=== PATIENT | male | born 1995 | race Caucasian/White ===

== ENCOUNTER 2018-10-13 17:33 | Inpatient (IN) | payer BC, OTHER ==
[~2018-10-13 17:33] MED LIST: ISOVUE-370 76%-LOCM 1 ML ONE
[2018-10-13 18:09] LABS: Hemoglobin 13.7 g/dL (14.0-18.0); Mean Corpuscular HGB CONC 33.7 g/dL (32.0-36.0); Mean Corpuscular Hemoglobin 30.3 pg (27.0-31.0); Mean Corpuscular Volume 89.7 fL (78.0-98.0); Mean Platelet Volume 8.1 fL (7.4-10.4); Platelet Count 262 thou/uL (130-400); RBC Distribution Width 11.5 % (11.5-14.5); Red Blood Cell (RBC) Count 4.54 mill/uL (4.70-6.10); White Blood Cell (WBC) Count 10.8 thou/uL (4.8-10.8)
--- NOTE | 2018-10-13 18:10 | RAD ---
CHEST ONE VIEW: 10/13/18 INDICATION: History of infected tooth. COMPARISON: None. FINDINGS: Lungs are clear. Heart size is normal. No acute osseous abnormality is evident. IMPRESSION: No acute cardiopulmonary abnormality. POS: BH
[2018-10-13] MEDS ORDERED: Acetaminophen 500 MG TAB ONE (18:27)
[2018-10-13 18:28] LABS: ALT (SGPT) 52 U/L (8-55); AST (SGOT) 80 U/L (5-34); Albumin 3.3 g/dL (3.5-5.0); Alkaline Phosphatase 387 U/L (40-150); Anion Gap 18 mmol/L (10-20); BUN (Urea Nitrogen) 16 mg/dL (8.9-20.6); Bilirubin, Total 0.8 mg/dL (0.2-1.2); Calc. Creatinine Clearance 0 mL/min (70-130); Calcium 9.1 mg/dL (7.8-10.44); Carbon Dioxide 24 mmol/L (22-29); Chloride 100 mmol/L (98-107); Estimated GFR-MDRD Greater than 90; Globulin 3.2 g/dL (2.4-3.5); Glucose 103 mg/dL (70-105); Protein, Total 6.5 g/dL (6.0-8.3); Sodium 139 mmol/L (136-145)
[2018-10-13 18:29] LABS: Band 55 % (5-11); Lymphocytes 1 % (21-51); MDiff Complete? YES; Neutrophil 43 % (42-75); Platelet Morphology Comment Appears Adequate; Polychromasia SLIGHT = 2-3 cells (100X) (0-2/hpf); Reactive Lymphocytes 1 % (0-10); Reflex for Review?? YES
[2018-10-13 18:30] LABS: Potassium 2.5 mmol/L (3.5-5.1)
[2018-10-13] MEDS ORDERED: Vancomycin HCl 1 GM in Premix Bag 1 BAG IVPB ONE (18:45)
--- NOTE | 2018-10-13 19:42 | CT ---
CT neck with IV contrast HISTORY: Infected tooth. Recent surgery. FINDINGS: Extensive pockets of gas are present within and surrounding the right temporalis muscle whi ch is expanded and contains some internal fluid. Masseter muscle is also expanded with fluid and small pockets of gas. Inflammation extends to the right pterygoid muscles. There is mass effect and e sushil of the right parapharyngeal space with leftward shift of the posterior nasopharyngeal airway. The right supratemporal gas and fluid collection measures up to 6.3 cm length by 7.3 cm depth by 1.1 cm width. Radiopaque packing material and rib and lie immediately lateral to the right mandibular body from rec ent surgery. Enlarged, reactive appearing lymph nodes along the right jugular chain. IMPRESSION: Postoperative changes with extensive gas pockets, fluid expansion, and subcutaneous edema involving the right muscles of mastication and into the supratemporal space. Likely abscess component. Effacement of the right parapharyngeal space and posterior nasopharyngeal airway. Radiopaque packing material is also in place.
[2018-10-13] MEDS ORDERED: Potassium Chloride 20 MEQ TAB ONE (20:15)
--- NOTE | 2018-10-13 20:44 | PDOC.FPRHP ---
- History of Present Illness Chief Complaint: Tooth Abscess History of Present Illness: 23 yo male with no PMH presents to ED with his parents for evaluation of tooth abscess. Patient was seen on Thursday in Urgent Care for right sided facial swelling and pain. He was started on Amoxicillin at that time and set up an appointment with OMFS. Today, he was seen by OMFS and was found to be tachycardic, hypotensive, and febrile. His abscess was lanced and packed and he was transferred to ED. Patient has since received pain medication, IVF, and antibiotics and states he feels improved. ED Course: 4L NS KCl Vancomycin Zosyn Tylenol - Allergies/Adverse Reactions Allergies Allergy/AdvReac Type Severity Reaction Status Date / Time No Known Allergies Allergy Unverified 10/13/18 18:34 - History PMHx: None PSHx: Ear tube placement FHx: Non-contributory Social: Denies alcohol, tobacco, illicit drug use. - Review of Systems General: reports: fever/chills, weight/appetite/sleep changes Eyes: denies: eye pain ENT: denies: nasal congestion, rhinorrhea Respiratory: denies: cough, congestion, shortness of breath Cardiovascular: denies: chest pain, palpitation, edema Gastrointestinal: denies: nausea, vomiting, diarrhea, constipation Genitourinary: denies: incontinence, dysuria Skin: reports: rashes. denies: lesions, jaundice Musculoskeletal: reports: pain, swelling. denies: tenderness, stiffness, arthritis/arthralgias Neurological: denies: numbness, syncope Psychological: denies: anxiety, depression - Vital signs BP: 100/63 HR: 136 RR: 24 Tmax: 103.1 Pox: 94% on RoomAir Wt: 82 kg - Physical Exam Constitutional: NAD, awake, alert and oriented HEENT: PERRLA, EOMI, grossly normal vision -HEENT: Right sided facial swelling and erythema. Trismus present Purulent drainage with surgical packing in place to right buccal mucosa Neck: trachea midline Heart: normal S1/S2, no murmurs/rubs/gallops -Heart: Tachycardic rate, regular rhythm Lungs: CTAB, no respiratory distress, good air movement, no rales/rhonchi, no wheezing, no retractions Abdomen: soft, non-tender, bowel sounds present, no masses/distention, no hernias Musculoskeletal: normal structure, normal tone, ROM grossly normal Neurological: no focal deficit, CN II-XII intact, normal sensation Skin: no rash/lesions, good turgor, capillary refill <2 seconds Heme/Lymphatic: no unusual bruising or bleeding, no purpura Psychiatric: normal mood and affect, good judgment and insight, intact recent and remote memory FMR H&P: Results - Labs Result Diagrams: 10/13/18 17:59 10/13/18 17:59 Lab results: WBC 10.8 thou/uL (4.8-10.8) 10/13/18 17:59 Hgb 13.7 g/dL (14.0-18.0) L 10/13/18 17:59 Hct 40.7 % (42.0-52.0) L 10/13/18 17:59 MCV 89.7 fL (78.0-98.0) 10/13/18 17:59 Plt Count 262 thou/uL (130-400) 10/13/18 17:59 Band Neuts % (Manual) 55 % (5-11) H 10/13/18 17:59 Sodium 139 mmol/L (136-145) 10/13/18 17:59 Potassium 2.5 mmol/L (3.5-5.1) L* 10/13/18 17:59 Chloride 100 mmol/L (98-107) 10/13/18 17:59 Carbon Dioxide 24 mmol/L (22-29) 10/13/18 17:59 BUN 16 mg/dL (8.9-20.6) 10/13/18 17:59 Creatinine 0.77 mg/dL (0.7-1.3) 10/13/18 17:59 Glucose 103 mg/dL (70-105) 10/13/18 17:59 Lactic Acid 2.2 mmol/L (0.5-2.2) 10/13/18 17:59 Calcium 9.1 mg/dL (7.8-10.44) 10/13/18 17:59 Total Bilirubin 0.8 mg/dL (0.2-1.2) 10/13/18 17:59 AST 80 U/L (5-34) H 10/13/18 17:59 ALT 52 U/L (8-55) 10/13/18 17:59 Alkaline Phosphatase 387 U/L (40-150) H 10/13/18 17:59 Serum Total Protein 6.5 g/dL (6.0-8.3) 10/13/18 17:59 Albumin 3.3 g/dL (3.5-5.0) L 10/13/18 17:59 FMR H&P: A/P - Problem List (1) Dental abscess Current Visit: Yes Status: Acute Code(s): K04.7 - PERIAPICAL ABSCESS WITHOUT SINUS (2) Sepsis Current Visit: Yes Status: Acute Code(s): A41.9 - SEPSIS, UNSPECIFIED ORGANISM (3) Hypokalemia Current Visit: Yes Status: Acute Code(s): E87.6 - HYPOKALEMIA (4) Elevated AST (SGOT) Current Visit: Yes Status: Acute Code(s): R74.0 - NONSPEC ELEV OF LEVELS OF TRANSAMNS & LACTIC ACID DEHYDRGNSE - Plan 1. Sepsis secondary to dental abscess - OMFS consulted and awaiting recommendations - Will continue antibiotics - Blood cultures pending - Wound cultures to be taken during procedure - s/p 4L NS 2. Hypokalemia - s/p 60 mEq oral - Continue to replete and recheck BMP 3. Elevated AST - No subjective Alcohol use - Possibly due to number one PCP: NONE CODE STATUS: FULL CODE Disposition: Stable, will admit to IMCU for further management. This patient was seen and evaluated with Dr. Jose Zeng who is in agreement with plan. Addendum - Attending - Attending Attestation Date/Time: 10/13/18 2100 I personally evaluated the patient and discussed the management with Dr. Milner. I agree with the History, Examination, Assessment and Plan documented above with any addition or exceptions noted below. Patient here with R maxillary wisdom tooth abscess s/p drainage at outside OMFS office earlier today. He reports pain and worsening swelling over the last 6 days. Also reports fevers and chills. Reports poor PO intake. On exam, he is tachycardic, borderline hypotensive, febrile. His exam is pertinent for significant swelling in the R face, extending into the posterior and lateral neck, and superiorly into the temporalis region. Significant edema and tenderness noted. He is unable to open his mouth fully. Reports that the pain is currently improved. Labs show significant leukocytosis with left shift and bandemia. He is also hypokalemic. CT of the head and neck shows tissue edema and gas formation in the L maxillary area with deeper extension. Patient will be admitted to IMCU for Severe sepsis 2/2 maxillary tooth abscess and overlying cellulitis extending into neck/head and deeper tissues. OMFS has been consulted and plans for further OR mgmt and debridement. He will be placed on broad spectrum abx. Pain control as needed. K has been repleted and will need recheck. He has been aggressively fluid resuscitated and will need continued IVF hydration while NPO. Fortunately, no evidence of end organ damage and he is asymptomatic from his mild hypotension. Will need close monitoring overnight.
[2018-10-13 22:15] LABS: Lactic Acid 1.1 mmol/L (0.5-2.2)
[2018-10-13] MEDS ORDERED: Morphine 2 MG/ML SYRINGE SLOW IVP PRN (22:33)
[2018-10-13] MEDS ORDERED: Ondansetron PF 4 MG/2 ML Vial IVP PRN (22:33)
[2018-10-13] MEDS: Lactated Ringer's 1,000 ML IV SCH (23:23)
[2018-10-13 23:58] LABS: Anion Gap 13 mmol/L (10-20); BUN (Urea Nitrogen) 10 mg/dL (8.9-20.6); Calc. Creatinine Clearance 0 mL/min (70-130); Calcium 7.8 mg/dL (7.8-10.44); Carbon Dioxide 22 mmol/L (22-29); Chloride 107 mmol/L (98-107); Estimated GFR-MDRD Greater than 90; Glucose 133 mg/dL (70-105); Potassium 3.2 mmol/L (3.5-5.1); Sodium 139 mmol/L (136-145)
[2018-10-14 00:45] VITALS: BMI 26.6
[2018-10-14] MEDS: Potassium Chloride 20 MEQ in Premix Bag 1 BAG IVPB SCH ×3 (01:00→03:00)
[2018-10-14] MEDS: Piperacillin/Tazobactam 3.375 GM in Sodium Chloride 0.9% 100 ML IVPB SCH ×5 (01:48→23:28)
[2018-10-14] MEDS: Vancomycin HCl 1 GM in Premix Bag 1 BAG IVPB SCH ×2 (06:01→17:19)
[2018-10-14] MEDS: Lactated Ringer's 1,000 ML IV SCH ×3 (06:02→23:31)
--- NOTE | 2018-10-14 06:24 | PDOC.FM ---
- Subjective Subjective: Patient denies any N/V overnight but did have subjective fever/chills. States his pain is well-controlled. Also able to stand without feeling lightheaded. - Objective MAR Reviewed: Yes Vital Signs & Weight: Vital Signs (12 hours) Temp 10/14/18 03:53 98.1 F Weight Weight 84.64 kg Most Recent Monitor Data Heart Rate from ECG 110 NIBP 97/54 NIBP BP-Mean 68 Respiration from ECG 20 SpO2 94 Result Diagrams: 10/14/18 06:59 10/13/18 23:32 Phys Exam - Physical Examination Constitutional: NAD HEENT: moist MMs, sclera anicteric trismus 2/2 pain &/or edema in R jaw with TTP & edema over R neck Neck: supple decreased ROM 2/2 pain in R neck Respiratory: no wheezing, no rales, no rhonchi, clear to auscultation bilateral Cardiovascular: no significant murmur tachycardic with regular rhythm Musculoskeletal: no edema Neurological: non-focal, moves all 4 limbs Psychiatric: normal affect, A&O x 3 Skin: no rash, normal turgor, cap refill <2 seconds Dx/Plan (1) Dental abscess Code(s): K04.7 - PERIAPICAL ABSCESS WITHOUT SINUS Status: Acute (2) Elevated AST (SGOT) Code(s): R74.0 - NONSPEC ELEV OF LEVELS OF TRANSAMNS & LACTIC ACID DEHYDRGNSE Status: Acute (3) Hypokalemia Code(s): E87.6 - HYPOKALEMIA Status: Acute (4) Sepsis Code(s): A41.9 - SEPSIS, UNSPECIFIED ORGANISM Status: Acute - Plan Plan: Sepsis secondary to dental abscess - Patient is s/p I&D as an outpatient with OMFS. However, OMFS consulted and to see again today. - Will continue IV antibiotics pending further recs from OMFS & culture results. - Blood cultures pending. - Will continue IVFs & IV morphine PRN for pain control. Hypokalemia - up to 3.2 this AM from 2.5 on admission. - NPO pending OMFS evaluation today so will attempt again to replace IV and continue to monitor & replete PRN. Elevated AST - No subjective Alcohol use - Possibly due to number one - Will continue to monitor PCP: NONE IVFs: LR @ 125mL/hr Abx: Vancomycin & Zosyn (day #2) Diet: NPO GI PPX: none DVT PPx: SCDs CODE STATUS: FULL CODE Disposition: Stable, will continue to monitor closely in IMCU pending recs from OMFS for further management. Addendum - Attending - Attending Attestation Date/Time: 10/14/18 4012 I personally evaluated the patient and discussed the management with Dr. Briseno. I agree with the History, Examination, Assessment and Plan documented above with any addition or exceptions noted below. Patient reports feeling well. He continues on broad spectrum IV abx and IVF. His vitals are improved this morning. Awaiting further OMFS recs and therapy to help with his sepsis 2/2 tooth abscess and surrounding infection. Will need continued K repletion. Continue NPO status.
[2018-10-14 07:42] LABS: Hemoglobin 10.8 g/dL (14.0-18.0); Mean Corpuscular Hemoglobin 30.5 pg (27.0-31.0); Mean Corpuscular Volume 89.8 fL (78.0-98.0); Mean Platelet Volume 8.2 fL (7.4-10.4); Platelet Count 241 thou/uL (130-400); RBC Distribution Width 11.7 % (11.5-14.5); Red Blood Cell (RBC) Count 3.53 mill/uL (4.70-6.10); White Blood Cell (WBC) Count 29.4 thou/uL (4.8-10.8)
[2018-10-14 07:59] LABS: Anion Gap 14 mmol/L (10-20); BUN (Urea Nitrogen) 9 mg/dL (8.9-20.6); Calc. Creatinine Clearance 229 mL/min (70-130); Calcium 7.9 mg/dL (7.8-10.44); Carbon Dioxide 25 mmol/L (22-29); Chloride 106 mmol/L (98-107); Estimated GFR-MDRD Greater than 90; Glucose 131 mg/dL (70-105); Potassium 3.4 mmol/L (3.5-5.1); Sodium 142 mmol/L (136-145)
[2018-10-14] MEDS ORDERED: Potassium Chloride 20 MEQ TAB PO SCH (08:00)
[2018-10-14 08:12] LABS: Band 51 % (5-11); Lymphocytes 2 % (21-51); MDiff Complete? YES; Monocytes 3 % (0-10); Neutrophil 43 % (42-75); Platelet Morphology Comment Appears Adequate; Polychromasia SLIGHT = 2-3 cells (100X) (0-2/hpf); Reactive Lymphocytes 1 % (0-10)
[2018-10-14] MEDS: Potassium Chloride 10 MEQ in Premix Bag 1 BAG IVPB SCH ×2 (09:11→09:12)
[2018-10-14] MEDS ORDERED: Acetaminophen 500 MG TAB PO PRN (11:39)
[2018-10-14] MEDS ORDERED: Morphine 2 MG/ML SYRINGE SLOW IVP PRN (11:40)
--- NOTE | 2018-10-15 03:49 | CON ---
DATE OF CONSULTATION: HISTORY OF PRESENT ILLNESS: Mr. Hernandez is a pleasant 23-year-old male, who presented to the maxillofacial guys after six days of severe jaw pain. He was found to have a dental abscess and impacted wisdom tooth. This was incised and drained. Because of the hypotension and tachycardia, he was sent to the emergency room and admitted. CT scanning of his neck done yesterday in the evening shows gas pockets, fluid expansion, subcu edema with mastication muscles and into the supratemporal space, felt to be infectious. He had right parapharyngeal and posterior nasopharyngeal edema. He says he feels 100% better than he felt yesterday. He has been healthy otherwise. He has had problems with the wisdom tooth in the past. FAMILY HISTORY: Negative for lung disease in early age. SOCIAL HISTORY: He is a nonsmoker and nondrinker. ALLERGIES: HE HAS NO DRUG ALLERGIES. REVIEW OF SYSTEMS: Ten-point is otherwise negative. PHYSICAL EXAMINATION: VITAL SIGNS: He is afebrile, heart rate is 112, oximetry is 95%, and blood pressure 129/75. HEAD AND NECK: Unremarkable other than being swollen. His voice is fine. LUNGS: Clear. HEART: Regular rhythm. S1 and S2 normal. ABDOMEN: Soft and nontender. EXTREMITIES: Without clubbing, cyanosis, or edema. LABORATORY DATA: Blood cultures are negative. Preliminary cultures from his abscess are negative, but they do show multiple organisms on Gram stain. IMPRESSION: Polymicrobial abscess. PLAN: Continue antimicrobial therapy. In my opinion, given that he is 23 years of age and unlikely to have a cardiac rhythm disturbance, it would be reasonable to transfer him out of the intermediate care unit given his hemodynamic instability. CRITICAL CARE TIME: 30 minutes. Job ID: [id number]
[2018-10-15] MEDS: Piperacillin/Tazobactam 3.375 GM in Sodium Chloride 0.9% 100 ML IVPB SCH ×4 (05:25→23:55)
[2018-10-15] MEDS: Vancomycin HCl 1 GM in Premix Bag 1 BAG IVPB SCH ×3 (05:26→22:19)
--- NOTE | 2018-10-15 06:24 | PDOC.FM ---
- Subjective Subjective: Patient was taken back for a 2nd I&D yesterday during which ~30-40cc of purulent material was removed and cultured. Patient has remained stable overnight and denies any fever/chills, N/V or orthostasis. Reports that his pain is well-controlled. - Objective MAR Reviewed: Yes Vital Signs & Weight: Vital Signs (12 hours) Temp Pulse Ox 10/15/18 03:37 99.4 F 10/15/18 00:08 99.5 F 10/14/18 19:51 97.9 F 10/14/18 19:35 95 Weight Weight 84.64 kg Most Recent Monitor Data Heart Rate from ECG 84 NIBP 133/68 NIBP BP-Mean 89 Respiration from ECG 19 SpO2 94 I&O: 10/13/18 10/14/18 10/15/18 06:59 06:59 06:59 Intake Total 2545 Output Total 1500 Balance 1045 Result Diagrams: 10/15/18 05:10 10/15/18 05:10 Phys Exam - Physical Examination Constitutional: NAD HEENT: moist MMs, sclera anicteric improvement in edema in R neck w/ persistent TTP Respiratory: no wheezing, no rales, no rhonchi, clear to auscultation bilateral Cardiovascular: RRR, no significant murmur Neurological: non-focal, moves all 4 limbs Psychiatric: normal affect, A&O x 3 Skin: no rash, normal turgor, cap refill <2 seconds Dx/Plan (1) Dental abscess Code(s): K04.7 - PERIAPICAL ABSCESS WITHOUT SINUS Status: Acute (2) Elevated AST (SGOT) Code(s): R74.0 - NONSPEC ELEV OF LEVELS OF TRANSAMNS & LACTIC ACID DEHYDRGNSE Status: Acute (3) Hypokalemia Code(s): E87.6 - HYPOKALEMIA Status: Acute (4) Sepsis Code(s): A41.9 - SEPSIS, UNSPECIFIED ORGANISM Status: Acute - Plan Plan: Sepsis secondary to dental abscess, improving - Patient is s/p I&D as an outpatient & inpatient with OMFS. OMFS on board & to possibly taking patient back to OR again this afternoon or evening. - Procal & WBC downtrending this AM and vitals WNLs. - Will continue IV antibiotics pending further recs from OMFS & culture results. Pharmacy to dose vanc as trough this AM was at a sub-therapeutic level at 6.6. - Blood & wound cultures pending. - Will continue IVFs & IV morphine PRN for pain control. Hypokalemia, resolved - K 3.5 this AM. Will continue to monitor & replete PRN. Elevated AST, improving - No subjective Alcohol use - Possibly due to number one - Will continue to monitor PCP: NONE IVFs: LR @ 125mL/hr Abx: Vancomycin & Zosyn (day #3) Diet: NPO after breakfast GI PPX: none DVT PPx: SCDs CODE STATUS: FULL CODE Disposition: Will move to surgical floor today and continue IV abx pending culture results. Addendum - Attending - Attending Attestation Date/Time: 10/15/18 6563 I personally evaluated the patient and discussed the management with Dr. Briseno. I agree with the History, Examination, Assessment and Plan documented above with any addition or exceptions noted below. Patient here for complicated tooth abscess, cellulitis, and sepsis. He is overall improved. WBC high, but afebrile and PCT downtrending. He continues on broad spectrum abx, cultures pending. He underwent significant drainage by OMFS yesterday. They plan to do this again today. WIll continue current mgmt and pain control and await further drainage. WIll likely need prolonged course of abx in the outpatient setting. No evidence end organ damage.
[2018-10-15 06:31] LABS: Vancomycin, Trough 6.6 ug/mL
[2018-10-15 06:40] LABS: Band 11 % (5-11); Hemoglobin 10.7 g/dL (14.0-18.0); Hypochromia SLIGHT = 6-15 cells (100X) (0-5/hpf); Lymphocytes 6 % (21-51); MDiff Complete? YES; Mean Corpuscular Hemoglobin 31.1 pg (27.0-31.0); Mean Corpuscular Volume 91.4 fL (78.0-98.0); Monocytes 2 % (0-10); Neutrophil 81 % (42-75); Platelet Count 297 thou/uL (130-400); Platelet Morphology Comment Appears Adequate; RBC Distribution Width 11.7 % (11.5-14.5); Red Blood Cell (RBC) Count 3.44 mill/uL (4.70-6.10); White Blood Cell (WBC) Count 26.9 thou/uL (4.8-10.8)
[2018-10-15 06:41] LABS: ALT (SGPT) 35 U/L (8-55); AST (SGOT) 38 U/L (5-34); Albumin 2.7 g/dL (3.5-5.0); Alkaline Phosphatase 82 U/L (40-150); Anion Gap 11 mmol/L (10-20); BUN (Urea Nitrogen) 10 mg/dL (8.9-20.6); Bilirubin, Total 0.4 mg/dL (0.2-1.2); Calc. Creatinine Clearance 229 mL/min (70-130); Calcium 7.7 mg/dL (7.8-10.44); Carbon Dioxide 26 mmol/L (22-29); Chloride 106 mmol/L (98-107); Estimated GFR-MDRD Greater than 90; Glucose 78 mg/dL (70-105); Potassium 3.5 mmol/L (3.5-5.1); Protein, Total 4.7 g/dL (6.0-8.3); Sodium 139 mmol/L (136-145)
[2018-10-15] MEDS: Ibuprofen 800 MG TAB PO PRN ×2 (10:51→23:52)
[2018-10-15] MEDS: Lactated Ringer's 1,000 ML IV SCH ×3 (10:52→22:28)
--- NOTE | 2018-10-15 12:42 | PRG ---
DATE OF SERVICE: 10/15/2018 SUBJECTIVE: Uriel Hernandez has no complaints. I am told he has surgery scheduled for this afternoon. OBJECTIVE: VITAL SIGNS: His heart rate is 93, blood pressure 135/78, respiratory rate 16, and oximetry is 95% on room air. LUNGS: Clear. HEART: Regular rhythm. ABDOMEN: Soft. IMPRESSION AND PLAN: Clinical sepsis associated with impacted wisdom tooth and the tooth abscess with inflammatory extension into mass at his temporalis muscle. He is clinically better. We will continue broad antimicrobial therapy. He will be transferred out of intermediate care to medical bed. We will sign off. Job ID: [id number]
--- NOTE | 2018-10-16 05:39 | PDOC.FM ---
- Subjective Subjective: Post op day 3. Patient doing well this morning. Reports that he was able to eat chicken fried steak last night, albeit slowly. He states that he is starting to feel like his normal self. Reports OMFS told him he'd possibly be able to go home this weekend, likely Thursday. He reports of a cough, but that it is due to the fact that he has had large amounts of drainage coming from his drain tube. - Objective MAR Reviewed: Yes Vital Signs & Weight: Vital Signs (12 hours) Temp Pulse Resp BP Pulse Ox 10/16/18 00:00 98.5 F 91 20 113/76 96 10/15/18 20:12 98 10/15/18 20:00 98.0 F 108 H 20 120/64 92 L Weight Weight 84.64 kg Most Recent Monitor Data Heart Rate from ECG 93 NIBP 135/78 NIBP BP-Mean 97 Respiration from ECG 16 SpO2 95 I&O: 10/14/18 10/15/18 10/16/18 06:59 06:59 06:59 Intake Total 2545 Output Total 1500 Balance 1045 Result Diagrams: 10/16/18 05:06 10/16/18 05:06 Phys Exam - Physical Examination Constitutional: NAD HEENT: moist MMs, sclera anicteric Right-sided facial edema, no erythema Neck: supple, full ROM Respiratory: no wheezing, clear to auscultation bilateral Cardiovascular: RRR, no significant murmur Gastrointestinal: soft, non-tender Musculoskeletal: no edema, pulses present Neurological: normal sensation, moves all 4 limbs Lymphatic: no nodes Psychiatric: normal affect, A&O x 3 Skin: normal turgor, cap refill <2 seconds Dx/Plan (1) Dental abscess Code(s): K04.7 - PERIAPICAL ABSCESS WITHOUT SINUS Status: Acute (2) Elevated AST (SGOT) Code(s): R74.0 - NONSPEC ELEV OF LEVELS OF TRANSAMNS & LACTIC ACID DEHYDRGNSE Status: Acute (3) Hypokalemia Code(s): E87.6 - HYPOKALEMIA Status: Acute (4) Sepsis Code(s): A41.9 - SEPSIS, UNSPECIFIED ORGANISM Status: Acute - Plan Plan: Sepsis secondary to dental abscess, improving - Patient is s/p I&D as an outpatient & inpatient with OMFS. OMFS consulted and has been following, draining abscess as necessary, appreciate recs. - Patient has drain in place - Procal & WBC downtrending this AM, WBC 12.7 and procal 12.45. Vitals WNLs. - Continue IV antibiotics pending further recs from OMFS & culture results. Pharmacy to dose vanc - Wound culture prelim results: moderate gram + cocci pairs, mod gram + rods, few gram + cocci clusters, few gram - rods - Blood cx negative @ 48hrs - Will continue IVFs & IV morphine PRN for pain control. Hypokalemia, resolved - K 3.4 this AM. Will continue to monitor & replete PRN. Elevated AST, improving - 36 today, downtrending - No subjective Alcohol use - Possibly due to number one - Will continue to monitor PCP: NONE IVFs: LR @ 125mL/hr Abx: Vancomycin & Zosyn Diet: Regular GI PPX: none DVT PPx: SCDs CODE STATUS: FULL CODE Disposition: Surgical floor today, continue IV abx pending culture results, possible d/c this weekend pending OMFS recs Addendum - Attending - Attending Attestation Date/Time: 10/16/18 9587 I personally evaluated the patient and discussed the management with Dr. Gallardo. I agree with the History, Examination, Assessment and Plan documented above with any addition or exceptions noted below. The patient is feeling better. He still has drain in place but OMFS plans to remove it today. Continue antibiotics and await cultures.
[2018-10-16] MEDS: Piperacillin/Tazobactam 3.375 GM in Sodium Chloride 0.9% 100 ML IVPB SCH ×4 (05:50→23:18)
[2018-10-16 05:52] LABS: #Eosinphils 0.1 thou/uL (0.0-0.7); #Lymphocytes 3.1 thou/uL (1.20-3.40); #Monocytes 0.7 thou/uL (0.11-0.59); #Neutrophils 8.8 thou/uL (1.40-6.50); %Basophils 0.3 % (0.0-1.0); %Eosinophils 1.1 % (0.0-10.0); %Lymphocytes 24.2 % (21.0-51.0); %Monocytes 5.2 % (0.0-10.0); %Neutrophils 69.2 % (42.0-75.0); Hemoglobin 11.8 g/dL (14.0-18.0); Mean Corpuscular HGB CONC 33.7 g/dL (32.0-36.0); Mean Corpuscular Hemoglobin 30.8 pg (27.0-31.0); Mean Corpuscular Volume 91.4 fL (78.0-98.0); Mean Platelet Volume 7.7 fL (7.4-10.4); Platelet Count 356 thou/uL (130-400); RBC Distribution Width 11.9 % (11.5-14.5); Red Blood Cell (RBC) Count 3.82 mill/uL (4.70-6.10); White Blood Cell (WBC) Count 12.7 thou/uL (4.8-10.8)
[2018-10-16 06:12] LABS: Vancomycin, Trough 12.7 ug/mL
[2018-10-16 06:15] LABS: ALT (SGPT) 41 U/L (8-55); AST (SGOT) 36 U/L (5-34); Albumin 2.7 g/dL (3.5-5.0); Alkaline Phosphatase 75 U/L (40-150); Anion Gap 11 mmol/L (10-20); BUN (Urea Nitrogen) 6 mg/dL (8.9-20.6); Bilirubin, Total 0.4 mg/dL (0.2-1.2); Calc. Creatinine Clearance 229 mL/min (70-130); Calcium 7.8 mg/dL (7.8-10.44); Carbon Dioxide 24 mmol/L (22-29); Chloride 108 mmol/L (98-107); Estimated GFR-MDRD Greater than 90; Globulin 2.5 g/dL (2.4-3.5); Glucose 78 mg/dL (70-105); Potassium 3.4 mmol/L (3.5-5.1); Protein, Total 5.2 g/dL (6.0-8.3); Sodium 140 mmol/L (136-145)
[2018-10-16] MEDS: Vancomycin HCl 1 GM in Premix Bag 1 BAG IVPB SCH (06:29)
[2018-10-16] MEDS: Lactated Ringer's 1,000 ML IV SCH ×2 (07:04→14:15)
[2018-10-16] MEDS: Vancomycin HCl 1.25 GM in Sodium Chloride 0.9% 250 ML 250 ML IVPB SCH ×3 (07:04→21:46)
[2018-10-16] MEDS: Ibuprofen 800 MG TAB PO PRN (16:11)
[2018-10-16] MEDS: Chlorhexidine Gluconate 15 ML UDCUP SSP SCH ×2 (16:45→19:53)
--- NOTE | 2018-10-16 22:21 | PRG ---
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 The patient has been admitted to the ICU for IV antibiotics, has been downgraded to medical/ surgical floor for continuation of IV antibiotics and monitoring. The patient has had an unremarkable past 24 hours. His pain is improving with IV and p.o. pain medication. He denies nausea and vomiting. He is ambulating and is accepting oral intake. FOCUSED CLINICAL EXAMINATION: MAXILLOFACIAL: Moderate right facial swelling, mild induration of right door glass installer space area along with mild induration of right submandibular region which has improved from prior exam. XIOMARA 20 mm. No floor of mouth elevation. Uvula is midline. No peritonsillar swelling. Brennon drain is secure in right incision and drainage vestibular site minimal exudate expressed upon palpation. Mild discomfort/pain along the palpated area. LABORATORY DATA: White blood cell count downtrending 26.9, now 12.7. Gram stain revealed gram-positive cocci, gram-positive clusters. Blood cultures were both negative. IMAGING: None. IMPRESSION: The patient is 4 days status post incision and drainage that is progressing and trending in the right direction. Currently vitals are normal. The patient is afebrile. PLAN: Brennon removed. Copiously irrigated with sterile saline at bedside. Recommended to the patient and nurse to continue irrigation q.i.d. with Peridex. Recommend 24 hours of additional IV antibiotics. Can plan to discharge home and will follow up with morale officer department at [facility] for continued followup care. Recommend p.o. Augmentin antibiotics. Discussed case with Dr. Munoz, family centered specialist distribution associate. The patient can be followed up from outpatient. Job ID: [id number] MTDD
[2018-10-17] MEDS: Ibuprofen 800 MG TAB PO PRN (04:00)
--- NOTE | 2018-10-17 05:03 | PDOC.FM ---
- Subjective Subjective: Patient doing well this morning. Was able to tolerate eating a sandwich last night. Agreeable to current plan of care with likely d/c today and close follow up with [facility]. - Objective Vital Signs & Weight: Vital Signs (12 hours) Temp Pulse Resp BP BP Pulse Ox 10/17/18 00:00 98.5 F 78 18 114/76 97 10/16/18 20:00 94 L 10/16/18 19:57 98.3 F 106 H 21 H 110/70 94 L Weight Weight 84.64 kg Most Recent Monitor Data Heart Rate from ECG 93 NIBP 135/78 NIBP BP-Mean 97 Respiration from ECG 16 SpO2 95 I&O: 10/15/18 10/16/18 10/17/18 06:59 06:59 06:59 Intake Total 2545 600 Output Total 1500 Balance 1045 600 Result Diagrams: 10/17/18 05:11 10/17/18 05:10 Phys Exam - Physical Examination Constitutional: NAD HEENT: moist MMs, sclera anicteric R sided facial swelling Neck: supple, full ROM Respiratory: no wheezing, clear to auscultation bilateral Cardiovascular: RRR, no significant murmur Gastrointestinal: no distention, positive bowel sounds Musculoskeletal: no edema, pulses present Neurological: normal sensation, moves all 4 limbs Lymphatic: no nodes Psychiatric: normal affect, A&O x 3 Skin: normal turgor, cap refill <2 seconds Dx/Plan (1) Dental abscess Code(s): K04.7 - PERIAPICAL ABSCESS WITHOUT SINUS Status: Acute (2) Elevated AST (SGOT) Code(s): R74.0 - NONSPEC ELEV OF LEVELS OF TRANSAMNS & LACTIC ACID DEHYDRGNSE Status: Acute (3) Hypokalemia Code(s): E87.6 - HYPOKALEMIA Status: Acute (4) Sepsis Code(s): A41.9 - SEPSIS, UNSPECIFIED ORGANISM Status: Acute - Plan Plan: Plan: Sepsis secondary to dental abscess, improving - Patient is s/p I&D as an outpatient & inpatient with OMFS. [facility] consulted and has been following, appreciate recs. - Patient had drain removal yesterday - Procal & WBC downtrending this AM, WBC 12.1 and procal 4.83. Vitals WNL. - Wound culture final results: moderate gram + cocci pairs, mod gram + rods, few gram + cocci clusters, few gram - rods - Blood cx negative @ 48hrs - D/c IVF 10/16, patient has not been requiring IV morphine for pain control. - Will likely d/c today on PO Augmentin with close follow up with [facility] Hypokalemia, resolved - K 3.4 this AM. Will continue to monitor & replete PRN. Elevated AST, improving - 26 today, wnl - No subjective Alcohol use - Likely 2/2 #1 - Will continue to monitor PCP: NONE IVFs: LR @ 125mL/hr Abx: Vancomycin & Zosyn Diet: Regular GI PPX: none DVT PPx: SCDs CODE STATUS: FULL CODE Disposition: Surgical floor today, transfer from IV vanc to PO augmentin, likely d/c today Addendum - Attending - Attending Attestation Date/Time: 10/17/18 5914 I personally evaluated the patient and discussed the management with Dr. Gallardo. I agree with the History, Examination, Assessment and Plan documented above with any addition or exceptions noted below. Transitioning to po augmentin. Pt is feeling better. He has been able to eat. Will d/c home. Stressed importance of continuing to rinse out mouth multiple times a day and to call for follow-up with omfs tomorrow.
[2018-10-17] MEDS: Piperacillin/Tazobactam 3.375 GM in Sodium Chloride 0.9% 100 ML IVPB SCH ×2 (05:10→11:59)
[2018-10-17 05:21] LABS: #Eosinphils 0.2 thou/uL (0.0-0.7); #Lymphocytes 2.3 thou/uL (1.20-3.40); #Monocytes 0.7 thou/uL (0.11-0.59); #Neutrophils 8.9 thou/uL (1.40-6.50); %Basophils 0.2 % (0.0-1.0); %Eosinophils 1.3 % (0.0-10.0); %Lymphocytes 18.9 % (21.0-51.0); %Monocytes 5.7 % (0.0-10.0); %Neutrophils 73.9 % (42.0-75.0); Mean Corpuscular HGB CONC 33.9 g/dL (32.0-36.0); Mean Corpuscular Volume 91.3 fL (78.0-98.0); Mean Platelet Volume 7.2 fL (7.4-10.4); Platelet Count 356 thou/uL (130-400); RBC Distribution Width 11.8 % (11.5-14.5); Red Blood Cell (RBC) Count 3.88 mill/uL (4.70-6.10); White Blood Cell (WBC) Count 12.1 thou/uL (4.8-10.8)
[2018-10-17 05:35] LABS: ALT (SGPT) 38 U/L (8-55); AST (SGOT) 26 U/L (5-34); Alkaline Phosphatase 66 U/L (40-150); Anion Gap 12 mmol/L (10-20); BUN (Urea Nitrogen) 4 mg/dL (8.9-20.6); Bilirubin, Total 0.7 mg/dL (0.2-1.2); Calc. Creatinine Clearance 218 mL/min (70-130); Calcium 8.1 mg/dL (7.8-10.44); Carbon Dioxide 25 mmol/L (22-29); Chloride 107 mmol/L (98-107); Estimated GFR-MDRD Greater than 90; Globulin 2.3 g/dL (2.4-3.5); Glucose 84 mg/dL (70-105); Potassium 3.4 mmol/L (3.5-5.1); Protein, Total 5.3 g/dL (6.0-8.3); Sodium 141 mmol/L (136-145)
[2018-10-17 05:40] LABS: Vancomycin, Trough 13.9 ug/mL
[2018-10-17] MEDS ORDERED: Vancomycin HCl 1.5 GM in Sodium Chloride 0.9% 250 ML 300 ML IVPB SCH (06:00)
[2018-10-17] MEDS: Vancomycin HCl 1.25 GM in Sodium Chloride 0.9% 250 ML 250 ML IVPB SCH (06:49)
[2018-10-17 07:44] VITALS: BP 106/65; TEMP 98.3
[2018-10-17] MEDS: Chlorhexidine Gluconate 15 ML UDCUP SSP SCH (07:50)
--- NOTE | 2018-10-18 03:48 | DIS ---
DATE OF ADMISSION: 10/13/2018 DATE OF DISCHARGE: 10/17/2018 ADMITTING RESIDENT: Sander Milner MD. ADMITTING ATTENDING: Jose Zeng MD DISCHARGE RESIDENT: Addis Gallardo MD. DISCHARGE ATTENDING: MD Alexander CONSULTS: [facility] [place]ay and Mahsa, Pulmonology-Mikhail. PROCEDURES: I & D procedure, drain placement and removal. IMAGING: Soft tissue neck CT: Extensive pockets of gas within and surrounding the right temporalis muscle which is expanded and contains some internal fluid. Masseter muscle is also expanded with fluid and pockets of gas. Inflammation extends to the right pterygoid muscles. There is mass effect and edema of the right parapharyngeal space with leftward shift of the posterior nasopharyngeal airway. The right supratemporal gas and fluid collection is 6.3 cm x 7.3 cm x 1.1 cm. Enlarged, reactive-appearing lymph nodes along the right jugular chain. Chest x-ray: no acute cardiopulmonary process. PRIMARY DIAGNOSES: 1. Sepsis secondary to dental abscess. 2. Hypokalemia. 3. Elevated AST. SECONDARY DIAGNOSIS: None. DISCHARGE MEDICATIONS: 1. 875/125 mg Augmentin p.o. b.i.d. x7 days 2. 15 mL cupful Chlorhexidine gluconate q.i.d. for 7 days. 3. 800 mg ibuprofen p.o. q.8 hours p.r.n. with food. Discontinued medications; 1. Vancomycin. 2. Zosyn. 3. Zofran. 4. Morphine. 5. Acetaminophen. HISTORY OF PRESENT ILLNESS/HOSPITAL COURSE: The patient presented to the ED with a tooth abscess that he had been previously evaluated for by Urgent Care 3 days prior, patient had already been started on amoxicillin with an appointment set up with [facility] He had been seen by [facility] the day of admission where his abscess was lanced and packed, and he was transferred to the ED. On admission, blood and wound cultures were taken and he was started on vancomycin and Zosyn. On 10/14, his white blood cell count was 29.4 with a procalcitonin 4.83, and he had a second I & D. By the day of discharge, his white blood cell count had improved to 12.1 with a procalcitonin of 4.83. When he presented to the ED, his AST was elevated at 80, which was attributed possibly to his infection. By discharge, it had improved to 26. The potassium on admission was 2.5 and it was repleted and continuously monitored. Upon discharge, it was stable between 3.4 and 3.5. He is able to tolerate solid foods and was discharged in stable condition with close followup with [facility]FS. DISPOSITION: Stable. DISCHARGE INSTRUCTIONS: 1. Location: Home. 2. Diet: Regular. 3. Activity: As tolerated. 4. Follow up with [facility]FS within 1 to 2 days and PCP within 1 week. Take antibiotics and chlorhexidine gluconate as prescribed and home ibuprofen as needed for pain with food. Job ID: [id number] [facility]
--- NOTE | 2018-10-23 14:52 | EKG ---
Test Reason : SEPIS ALERT Blood Pressure : / mmHG Vent. Rate : 175 BPM Atrial Rate : 175 BPM P-R Int : 000 ms QRS Dur : 082 ms QT Int : 288 ms P-R-T Axes : 064 063 011 degrees QTc Int : 491 ms Sinus tachycardia Nonspecific ST abnormality Abnormal ECG No ST elevation/CT No Supraventricular tachycardia Confirmed by CHRIS Perales, JUAN FRANCISCO ([id number]), book or script editor MARZENA BARTON ([id number]) on 10/23/2018 2:52:21 PM Referred By: Confirmed By:JUAN FRANCISCO PEREZ M.D.
== END 2018-10-17 12:15 | disposition home or self-care (01) | DRG 872 ==
LOC: ERS 17:33 → ERHOLD 19:45 → IMCU/EMU 10-14 00:23 → T4-A 10-15 13:53
PROVIDERS: ADMIT Student in an Organized Health Care Education/Training Program; ATTEND Student in an Organized Health Care Education/Training Program
DX: A41.9 Sepsis, unspecified organism (principal); K12.2 Cellulitis and abscess of mouth; K04.7 Periapical abscess without sinus; R65.20 Severe sepsis without septic shock; K01.1 Impacted teeth; E87.6 Hypokalemia
CPT/HCPCS: 36415; 70491; 71045; 80048; 80053; 80202; 83605; 84145; 85025; 85060; 87040; 87070; 87205; 93005; 96361; 96365; 96367; J2270; J2543; J3370; J3480; J3490; J7050; Q9966